=== PATIENT | female | born 1980 | race Caucasian/White ===

== ENCOUNTER 2019-03-06 08:27 | Emergency (ER) | payer MEDICAID ==
[~2019-03-06] VITALS: Ht 160 cm; Wt 83.9 kg
[~2019-03-06 08:27] MED LIST: IBUP-1542 PO; PREN-39 PO
[2019-03-06 08:32] VITALS: BP 153/75; PULSE 68; RESP 18; Ht 160 cm; Wt 83.9 kg
[2019-03-06] MEDS ORDERED: KETOROLAC 60 MG INJ IM STA (08:44)
[2019-03-06] MEDS ORDERED: ONDA4TAB14 PO (09:59)
[2019-03-06] MEDS ORDERED: NAPR-985 PO (09:59)
--- NOTE | 2019-03-06 10:07 | ERD ---
ER Documentation Chief Complaint Chief Complaint H/A for 2 months, lower back pain, facial pain for a while. Ambulatory. HPI 38-year-old female presenting with generalized body pain and abdominal pain for the last 2 months. Patient states she recently had her menstrual periods. She has some dysuria but denies back pain. Has no shortness of breath or chest pain. Has not taken medications for her symptoms. History hypertension. NKDA. Surgical history denies. Social history denies ROS All systems reviewed and are negative except as per history of present illness. Medications Home Meds Active Scripts Ondansetron (Ondansetron Odt) 4 Mg Tab.rapdis, 4 MG PO Q6H PRN for NAUSEA AND/OR VOMITING, #10 TAB Prov:TIFFANIE HOUGH PA-C 03/06/19 Naproxen* (Naprosyn*) 500 Mg Tablet, 500 MG PO BID PRN for PAIN AND/OR INFLAMMATION, #30 TAB Prov:TIFFANIE HOUGH PA-C 03/06/19 Ibuprofen* (Motrin*) 600 Mg Tab, 600 MG PO Q6, #30 TAB Prov:TRICE CRAVEN MD 05/27/16 Reported Medications Vits W-Ca,Fe,Fa(<1MG) ( Vitamins) 1 Tab Tablet, 1 TAB PO DAILY 01/15/15 Allergies Allergies: Coded Allergies: No Known Allergy (Unverified , 03/06/19) PMhx/Soc History of Surgery: Yes (C SECTION ) Anesthesia Reaction: No Hx Neurological Disorder: No Hx Respiratory Disorders: No Hx Cardiac Disorders: Yes (htn) Hx Psychiatric Problems: No Hx Miscellaneous Medical Probl: Yes (GESTATIONAL DIABETES ) Hx Alcohol Use: No Hx Substance Use: No Hx Tobacco Use: No Smoking Status: Never smoker FmHx Family History: No diabetes, No coronary disease, No other Physical Exam Vitals Vital Signs Date Temp Pulse Resp B/P (MAP) Pulse Ox O2 O2 Flow FiO2 Time Delivery Rate 03/06/19 97.7 68 18 153/75 98 08:32 (101) Physical Exam GENERAL: The patient is well-appearing, well-nourished, in no acute distress CHEST: Clear to auscultation bilaterally. There are no rales, wheezes or rhonchi. HEART: Regular rate and rhythm. No murmurs, clicks, rubs or gallops. ABDOMEN:Soft, nontender and nondistended. Good bowel sounds. No rebound or guarding. No gross peritonitis. No gross organomegaly or masses. No Guerra sign or McBurney point tenderness. BACK: No midline or flank tenderness. EXTREMITIES: Equal pulses bilaterally. There is no peripheral clubbing, cyanosis or edema. No focal swelling or erythema. Full range of motion. Grossly neurovascularly intact. NEUROLOGIC: Alert and oriented. Cranial nerves II through XII intact. Motor strength in all 4 extremities with 5 out of 5 strength. Sensation grossly intact. Normal speech and gait. Babinski negative. DTR 2+ throughout. Result Diagram: 03/06/19 0853 03/06/19 0853 Results 24 hrs Laboratory Tests Test 03/06/19 08:46 03/06/19 08:53 Bedside Urine pH (LAB) 7.0 Bedside Urine Protein (LAB) Negative Bedside Urine Glucose (UA) Negative Bedside Urine Ketones (LAB) Negative Bedside Urine Blood 2+ Bedside Urine Nitrite (LAB) Negative Bedside Urine Leukocyte Esterase (L Negative POC Beta HCG, Qualitative NEGATIVE White Blood Count 4.3 10^3/ul Red Blood Count 3.86 10^6/ul Hemoglobin 12.7 g/dl Hematocrit 35.6 % Mean Corpuscular Volume 92.2 fl Mean Corpuscular Hemoglobin 32.9 pg Mean Corpuscular Hemoglobin Concent 35.7 g/dl Red Cell Distribution Width 12.6 % Platelet Count 233 10^3/UL Mean Platelet Volume 10.2 fl Immature Granulocytes % 0.500 % Neutrophils % 57.4 % Lymphocytes % 31.4 % Monocytes % 8.6 % Eosinophils % 1.2 % Basophils % 0.9 % Nucleated Red Blood Cells % 0.0 /100WBC Immature Granulocytes # 0.020 10^3/ul Neutrophils # 2.5 10^3/ul Lymphocytes # 1.4 10^3/ul Monocytes # 0.4 10^3/ul Eosinophils # 0.1 10^3/ul Basophils # 0.0 10^3/ul Nucleated Red Blood Cells # 0.0 10^3/ul Sodium Level 142 mmol/L Potassium Level 4.0 mmol/L Chloride Level 108 mmol/L Carbon Dioxide Level 25 mmol/L Anion Gap 9 Blood Urea Nitrogen 10 mg/dl Creatinine 0.42 mg/dl Est Glomerular Filtrat Rate mL/min > 60 mL/min Glucose Level 129 mg/dl Calcium Level 9.3 mg/dl Total Bilirubin 2.2 mg/dl Direct Bilirubin 0.00 mg/dl Indirect Bilirubin 2.2 mg/dl Aspartate Amino Transf (AST/SGOT) 30 IU/L Alanine Aminotransferase (ALT/SGPT) 32 IU/L Alkaline Phosphatase 88 IU/L Total Protein 7.3 g/dl Albumin 4.2 g/dl Globulin 3.10 g/dl Albumin/Globulin Ratio 1.35 Current Medications Medications Dose Sig/Efe Start Time Status Last (Trade) Ordered Route PRN Stop Time Admin Dose Reason Admin Ketorolac 60 mg ONCE STAT 03/06/19 DC 03/06/19 Tromethamine IM 08:44 08:48 (Toradol) 03/06/19 08:45 Procedures/MDM Course: Blood work and urinalysis negative. MDM: 38-year-old female presenting with generalized body pain and dysuria. Patient's urinalysis is negative. Patient's blood work is within normal limits. I have low suspicion for infectious process. I have low suspicion for acute abdominal emergency. I have low suspicion for cardiac or pulmonary emergency. Patient is discharged with strict ER precautions and told to follow-up with primary care within 1 to 2 days for close evaluation. Patient is told if symptoms change or worsen to return immediately to the ER. All questions answered at discharge Departure Diagnosis: Primary Impression: Total body pain Condition: Stable Patient Instructions: Shoulder Pain (Uncertain Cause) Referrals: [facility] YOU HAVE RECEIVED A MEDICAL SCREENING EXAM AND THE RESULTS INDICATE THAT YOU DO NOT HAVE A CONDITION THAT REQUIRES URGENT TREATMENT IN THE EMERGENCY DEPARTMENT. FURTHER EVALUATION AND TREATMENT OF YOUR CONDITION CAN WAIT UNTIL YOU ARE SEEN I N YOUR DOCTORS OFFICE WITHIN THE NEXT 1-2 DAYS. IT IS YOUR RESPONSIBILITY TO MAKE AN APPOINTMENT FOR FOLOW-UP CARE. IF YOU HAVE A PRIMARY DOCTOR --you should call your primary doctor and schedule an appointment IF YOU DO NOT HAVE A PRIMARY DOCTOR YOU CAN CALL OUR PHYSICIAN REFERRAL HOTLINE AT IF YOU CAN NOT AFFORD TO SEE A PHYSICIAN YOU CAN CHOSE FROM THE FOLLOWING [facility] [address] [facility] [address] [facility] [address] [facility] [address] [facility]. [facility] [address] [facility]. [facility] [address] Additional Instructions: FOLLOW UP WITH YOUR PRIMARY CARE PHYSICIAN TOMORROW.Return to this facility if you are not improving as expected. TIFFANIE HOUGH PA-C Mar 06, 2019 10:07
== END 2019-03-06 10:09 | disposition home or self-care (01) ==
LOC: FTE 08:27
DX: M54.5 Low back pain (principal); I10 Essential (primary) hypertension
CPT/HCPCS: 80053; 81003; 81025; 85025; 96372; J1885; Z7502